=== PATIENT | female | born 1945 | race Caucasian/White ===

== ENCOUNTER 2016-02-21 | Emergency (ER) | payer MEDICARE, OTHER | END 2016-02-21 12:40 | disposition home or self-care (01) ==

== ENCOUNTER 2016-03-09 08:00 | Outpatient (CLI) | payer MEDICARE, OTHER | END 2016-03-09 23:59 | disposition home or self-care (01) | DX: E11.9 Type 2 diabetes mellitus without complications (principal) ==

== ENCOUNTER 2016-03-09 10:45 | Outpatient (CLI) | payer MEDICARE, OTHER | END 2016-03-09 10:46 | disposition home or self-care (01) | DX: E11.9 Type 2 diabetes mellitus without complications (principal); M79.673 Pain in unspecified foot; E03.9 Hypothyroidism, unspecified; N19 Unspecified kidney failure; Z79.899 Other long term (current) drug therapy ==

== ENCOUNTER 2016-04-07 10:06 | Emergency (ER) | payer MEDICARE, OTHER | END 2016-04-07 11:03 | disposition home or self-care (01) | DX: M25.561 Pain in right knee (principal); M79.671 Pain in right foot; W19.XXXA Unspecified fall, initial encounter; M19.90 Unspecified osteoarthritis, unspecified site; I10 Essential (primary) hypertension; E11.9 Type 2 diabetes mellitus without complications; Z79.84 Long term (current) use of oral hypoglycemic drugs ==

== ENCOUNTER 2016-04-19 05:10 | Emergency (ER) | payer MEDICARE, OTHER | END 2016-04-19 07:11 | disposition home or self-care (01) | DX: G47.00 Insomnia, unspecified (principal); M17.0 Bilateral primary osteoarthritis of knee; I10 Essential (primary) hypertension; E11.9 Type 2 diabetes mellitus without complications; Z79.84 Long term (current) use of oral hypoglycemic drugs ==

== ENCOUNTER 2016-05-10 10:16 | Outpatient (CLI) | payer MEDICARE, OTHER | END 2016-05-10 10:17 | disposition home or self-care (01) | DX: M25.569 Pain in unspecified knee (principal); Z79.899 Other long term (current) drug therapy; I10 Essential (primary) hypertension; I25.10 Atherosclerotic heart disease of native coronary artery without angina pectoris; K21.9 Gastro-esophageal reflux disease without esophagitis; R51 Headache; M19.90 Unspecified osteoarthritis, unspecified site; E11.9 Type 2 diabetes mellitus without complications; E03.9 Hypothyroidism, unspecified; F32.9 Major depressive disorder, single episode, unspecified ==

== ENCOUNTER 2016-05-11 08:00 | Outpatient (CLI) | payer MEDICARE, OTHER | END 2016-05-11 08:01 | DX: Z53.9 Procedure and treatment not carried out, unspecified reason (principal) ==

== ENCOUNTER 2016-09-06 07:22 | Outpatient (CLI) | payer MEDICARE, OTHER | END 2016-09-06 07:23 | disposition EMS.NT | LOC: EMS 07:22 | PROVIDERS: ATTEND Surgery | DX: Z03.89 Encounter for observation for other suspected diseases and conditions ruled out (principal); W17.89XA Other fall from one level to another, initial encounter; Y92.013 Bedroom of single-family (private) house as the place of occurrence of the external cause ==

== ENCOUNTER 2017-04-14 14:40 | Outpatient (CLI) | payer OTHER, MEDICARE | END 2017-04-14 14:41 | disposition critical access hospital (66) | LOC: EMS 14:40 | PROVIDERS: ATTEND Surgery | DX: M54.2 Cervicalgia (principal); M54.9 Dorsalgia, unspecified; V49.40XA Driver injured in collision with unspecified motor vehicles in traffic accident, initial encounter; Y92.413 State road as the place of occurrence of the external cause | CPT/HCPCS: A0425; A0429 ==

== ENCOUNTER 2017-04-14 15:02 | Emergency (ER) | payer OTHER, MEDICARE ==
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
--- NOTE | 2017-04-14 16:56 | XRAY Preliminary Report ---
Exam: XR WRIST 4 VIEW LT IMPRESSION: No acute findings. [facility] SITE ID: [id number]
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
[2017-04-14 16:58] VITALS: BP 132/51
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
--- NOTE | 2017-04-14 16:59 | XRAY Preliminary Report ---
Exam: XR CHEST 2 VIEW X-RAY IMPRESSION: Lower lung volumes. Mild diffuse bilateral airspace disease which is more prominent at the lung bases, could be atelectas is, or pulmonary edema. Pneumonia or lung contusion not excluded. No pleural effusion or pneumothorax . Cardiomegaly. Mediastinal postsurgical changes. No acute bone findings are seen. [facility] SITE ID: [id number]
--- NOTE | 2017-04-14 17:00 | XRAY Preliminary Report ---
Exam: XR KNEE 4 VIEW LT IMPRESSION: Mild to moderate knee degenerative joint disease. Small knee joint effusion. No evidence for acute fracture. [facility] SITE ID: [id number]
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
== END 2017-04-14 17:37 | disposition home or self-care (01) ==
LOC: EDUNIT# → EDBD → ED 15:02
DX: S20.211A Contusion of right front wall of thorax, initial encounter (principal); S16.1XXA Strain of muscle, fascia and tendon at neck level, initial encounter; S80.02XA Contusion of left knee, initial encounter; W22.11XA Striking against or struck by driver side automobile airbag, initial encounter; V43.52XA Car driver injured in collision with other type car in traffic accident, initial encounter; I10 Essential (primary) hypertension; E78.00 Pure hypercholesterolemia, unspecified; E11.9 Type 2 diabetes mellitus without complications; Z79.84 Long term (current) use of oral hypoglycemic drugs
CPT/HCPCS: 71046; 72125; 99283; 99284

== ENCOUNTER 2017-06-11 11:31 | Outpatient (CLI) | payer MEDICARE, OTHER ==
[2017-06-11 12:21] LABS: CALCIUM 9.4 mg/dL (8.5-10.3); CREATININE 0.9 mg/dL (0.4-1.0)
[2017-06-11 12:29] LABS: HB2 TOTAL 16.4 g/dL; HEMOGLOBIN A1C 0.7 g/dL; HEMOGLOBIN A1C % 6.1 % (4.6-6.2)
== END 2017-06-11 11:32 | disposition home or self-care (01) ==
LOC: LAB 11:31
PROVIDERS: ATTEND Internal Medicine
DX: E11.9 Type 2 diabetes mellitus without complications (principal); Z79.899 Other long term (current) drug therapy
CPT/HCPCS: 36415; 80048; 82607; 83036

== ENCOUNTER 2018-05-22 09:33 | Outpatient (CLI) | payer MEDICARE, OTHER ==
[2018-05-22 10:20] LABS: ALBUMIN/GLOBULIN RATIO 1.1 (1.0-2.2); ALKALINE PHOSPHATASE 73 IU/L (42-121); ALT ALANINE AMINOTRANSFERASE 23 IU/L (10-60); AST ASPARTATE AMINOTRANSFERASE 25 IU/L (10-42); BILIRUBIN,TOTAL 0.9 mg/dL (0.2-1.0); BUN - BLOOD UREA NITROGEN 19 mg/dL (6-20); CARBON DIOXIDE - CO2 26 mmol/L (21-32); CHLORIDE 104 mmol/L (101-111); CHOL/HDL RATIO 3.9 (<4.4); CHOLESTEROL 221 mg/dL; CREATININE 0.7 mg/dL (0.4-1.0); GFR - MDRD 82 (>89); GLUCOSE 115 mg/dL (70-100); HDL CHOLESTEROL 57 mg/dL; LDL CHOLESTEROL,CALCULATED 142 mg/dL; LDL/HDL RATIO 2.5 (<4.4); SODIUM 138 mmol/L (135-145); TOTAL PROTEIN 7.6 g/dL (6.7-8.2); VLDL CHOLESTEROL 22 mg/dL
[2018-05-22 10:31] LABS: THYROID STIMULATING HORMONE 0.96 uIU/mL (0.34-5.60)
[2018-05-22 11:04] LABS: HB2 TOTAL 15.6 g/dL; HEMOGLOBIN A1C 0.73 g/dL; HEMOGLOBIN A1C % 6.4 % (4.6-6.2)
== END 2018-05-22 09:34 | disposition home or self-care (01) ==
LOC: LAB 09:33
PROVIDERS: ATTEND Internal Medicine
DX: E11.9 Type 2 diabetes mellitus without complications (principal); R53.83 Other fatigue; N18.9 Chronic kidney disease, unspecified; E78.5 Hyperlipidemia, unspecified; I12.9 Hypertensive chronic kidney disease with stage 1 through stage 4 chronic kidney disease, or unspecified chronic kidney disease; R41.9 Unspecified symptoms and signs involving cognitive functions and awareness; I25.10 Atherosclerotic heart disease of native coronary artery without angina pectoris; F03.90 Unspecified dementia, unspecified severity, without behavioral disturbance, psychotic disturbance, mood disturbance, and anxiety
CPT/HCPCS: 36415; 80053; 80061; 81001; 81003; 81599; 82043; 82570; 82607; 83036; 83721; 84443; 86780; 87086

== ENCOUNTER 2018-10-29 12:12 | Outpatient (CLI) | payer MEDICARE, OTHER | END 2018-10-29 12:13 | disposition EMS.NT | LOC: EMS 12:12 | PROVIDERS: ATTEND Surgery | DX: Z03.89 Encounter for observation for other suspected diseases and conditions ruled out (principal) ==

== ENCOUNTER 2020-01-15 09:56 | Outpatient (CLI) | payer MEDICARE, OTHER ==
[2020-01-15 13:34] LABS: BASOPHILS % (AUTO) 0.5 %; EOSINOPHILS # (AUTO) 0.3 10^3/uL (0.0-0.7); EOSINOPHILS % (AUTO) 3.3 %; HGB - HEMOGLOBIN 13.8 g/dL (12.0-16.0); LYMPHOCYTES # (AUTO) 1.8 10^3/uL (1.5-3.5); LYMPHOCYTES % (AUTO) 20.7 %; MEAN CORPUSCULAR HEMOGLOBIN 31.3 pg (27.0-31.0); MEAN CORPUSCULAR HGB CONC 31.8 g/dL (32.0-36.0); MEAN CORPUSCULAR VOLUME 98.4 fL (81.0-99.0); MEAN PLATELET VOLUME 11.1 fL (7.9-10.8); MONOCYTES # (AUTO) 0.5 10^3/uL (0.0-1.0); NEUTROPHILS # (AUTO) 5.9 10^3/uL (1.5-6.6); NEUTROPHILS % (AUTO) 69.1 %; PLT - PLATELET COUNT 199 10^3/uL (130-450); RED BLOOD COUNT 4.41 10^6/uL (4.20-5.40); RED CELL DISTRIBUTION WIDTH 12.1 % (12.0-15.0); WHITE BLOOD COUNT 8.5 x10^3/uL (4.8-10.8)
[2020-01-15 13:43] LABS: HEMOGLOBIN A1c% 6.2 % (4.27-6.07)
[2020-01-15 14:17] LABS: ALKALINE PHOSPHATASE 84 IU/L (42-121); ALT ALANINE AMINOTRANSFERASE 16 IU/L (10-60); AST ASPARTATE AMINOTRANSFERASE 16 IU/L (10-42); BILIRUBIN,TOTAL 0.7 mg/dL (0.2-1.0); BUN - BLOOD UREA NITROGEN 20 mg/dL (6-20); CALCIUM 9.4 mg/dL (8.5-10.3); CARBON DIOXIDE - CO2 28 mmol/L (21-32); CHLORIDE 101 mmol/L (101-111); CHOL/HDL RATIO 3.7 (<4.4); CHOLESTEROL 205 mg/dL; CREATININE 0.8 mg/dL (0.4-1.0); GLUCOSE 106 mg/dL (70-100); HDL CHOLESTEROL 56 mg/dL; LDL CHOLESTEROL,CALCULATED 112 mg/dL; SODIUM 140 mmol/L (135-145); VLDL CHOLESTEROL 37 mg/dL
[2020-01-15 14:26] LABS: THYROID STIMULATING HORMONE 0.86 uIU/mL (0.34-5.60)
== END 2020-01-15 09:57 | disposition home or self-care (01) ==
LOC: LAB.N 09:56
PROVIDERS: ATTEND Internal Medicine
DX: F03.90 Unspecified dementia, unspecified severity, without behavioral disturbance, psychotic disturbance, mood disturbance, and anxiety (principal); E78.5 Hyperlipidemia, unspecified; I12.9 Hypertensive chronic kidney disease with stage 1 through stage 4 chronic kidney disease, or unspecified chronic kidney disease; E11.22 Type 2 diabetes mellitus with diabetic chronic kidney disease; N18.9 Chronic kidney disease, unspecified; Z13.6 Encounter for screening for cardiovascular disorders; Z79.899 Other long term (current) drug therapy; G11.9 Hereditary ataxia, unspecified; G03.9 Meningitis, unspecified
CPT/HCPCS: 36415; 80053; 80061; 82043; 82607; 83036; 83721; 84443; 85025

== ENCOUNTER 2020-01-16 14:15 | Outpatient (CLI) | payer MEDICARE, OTHER ==
[2020-01-16 19:01] LABS: CREATININE,URINE 79.7 mg/dL; MICROALBUM/CREATININE RATIO,UR 8.8 ug/mg (<30.0); MICROALBUMIN,URINE 0.7 mg/dL (0-300.0)
== END 2020-01-16 23:59 | disposition home or self-care (01) ==
LOC: LAB.N 14:15
PROVIDERS: ATTEND Internal Medicine
DX: I12.9 Hypertensive chronic kidney disease with stage 1 through stage 4 chronic kidney disease, or unspecified chronic kidney disease (principal); E11.22 Type 2 diabetes mellitus with diabetic chronic kidney disease; N18.9 Chronic kidney disease, unspecified; Z13.6 Encounter for screening for cardiovascular disorders; Z79.899 Other long term (current) drug therapy; F03.90 Unspecified dementia, unspecified severity, without behavioral disturbance, psychotic disturbance, mood disturbance, and anxiety; E03.9 Hypothyroidism, unspecified; E78.5 Hyperlipidemia, unspecified
CPT/HCPCS: 82043; 82570

== ENCOUNTER 2020-12-24 08:55 | Outpatient (CLI) | payer MEDICARE, OTHER | END 2020-12-24 08:56 | disposition home or self-care (01) | LOC: EMS 08:55 ==